=== PATIENT | female | born 1970 | race Caucasian/White ===

== ENCOUNTER 2023-10-08 19:50 | Emergency (ER) | payer OTHER, SELFPAY ==
[2023-10-08 19:51] VITALS: BP 152/89; PULSE 84; RESP 16; TEMP 36.6; O2SAT 99; BMI 30.8
--- NOTE | 2023-10-08 20:06 | US_ITS ---
STUDY: VENOUS DOPPLER ULTRASOUND - BILATERAL LOWER EXTREMITIES REASON FOR EXAM: Female, 53 years old. BILATERAL LOWER CALF REDNESS AND SWELLING X 4 MONTHS NO PAIN TECHNIQUE: Ultrasound evaluation of the deep vein system to include murillo-scale imaging and compression was performed. Murillo-scale imaging and Doppler sonographic evaluation, including duplex spectral analysis and qualitative color flow sonography, was performed. COMPARISON: None. FINDINGS: RIGHT LEG Common Femoral Vein: Normal compression, spontaneity and augmentation. Normal color Doppler. Common Femoral Vein/Greater Saphenous Junction: Normal compression, spontaneity and augmentation. Normal color Doppler. Deep Femoral Vein: Normal compression, spontaneity and augmentation. Normal color Doppler. Femoral Proximal: Normal compression, spontaneity and augmentation. Normal color Doppler. Femoral Middle: Normal compression, spontaneity and augmentation. Normal color Doppler. Femoral Distal: Normal compression, spontaneity and augmentation. Normal color Doppler. Popliteal Vein: Normal compression, spontaneity and augmentation. Normal color Doppler. Posterior Tibial Vein: Normal compression, spontaneity and augmentation. Normal color Doppler. Peroneal Vein: Normal compression, spontaneity and augmentation. Normal color Doppler. LEFT LEG Common Femoral Vein: Normal compression, spontaneity and augmentation. Normal color Doppler. Common Femoral Vein/Greater Saphenous Junction: Normal compression, spontaneity and augmentation. Normal color Doppler. Deep Femoral Vein: Normal compression, spontaneity and augmentation. Normal color Doppler. Femoral Proximal: Normal compression, spontaneity and augmentation. Normal color Doppler. Femoral Middle: Normal compression, spontaneity and augmentation. Normal color Doppler. Femoral Distal: Normal compression, spontaneity and augmentation. Normal color Doppler. Popliteal Vein: Normal compression, spontaneity and augmentation. Normal color Doppler. Posterior Tibial Vein: Normal compression, spontaneity and augmentation. Normal color Doppler. Peroneal Vein: Normal compression, spontaneity and augmentation. Normal color Doppler. US/Venous Duplex Imag/Haider Extrem IMPRESSION: Normal venous Doppler ultrasound of the bilateral lower extremities. Electronically Signed: Gil Blandon MD at 20:44 EST ,
--- NOTE | 2023-10-08 20:28 | EDS_ITS ---
HPI History of Present Illness Chief Complaint: Rash Informant: patient Narrative Narrative: Patient present secondary to rash and swelling to her legs. She states since June she has had erythema on her lower extremities, right greater than left. It affects the distal aspect of her lower legs only. She was seen at urgent care in August and placed on both oral and topical steroids. She states this seemed to calm it down but it never completely resolved. Symptoms have worsened recently and over the last 2 days she has noted swelling in her legs. She does not have a primary care physician but did do a Zoom visit with a [facility] doctor today who recommended she come to the emergency room. [facility] Medical History no medical history no medical history Home Medications prednisone 20 mg tablet 40 mg (2 x 20 mg) PO DAILY #8 tabs 10/08/23 [Rx Last Taken Unknown] Allergy/AdvReac Type Severity Reaction Status Date / Time No Known Allergies Allergy Verified 10/08/23 19:51 Social History Smoking Status: Never smoker ROS ROS ED Constitutional Constitutional ED: Denies chills or fever(s) Eyes Eyes: Denies discharge from eye(s) ENT ENT ED: Denies discharge from eye(s), rhinorrhea or sore throat Cardiovascular Cardiovascular: Denies chest pain or palpitations Respiratory/Chest Respiratory/Chest: Denies cough or dyspnea Gastrointestinal Gastrointestinal: Denies abdominal pain, nausea or vomiting Genitourinary Genitourinary ED: Denies dysuria Musculoskeletal Musculoskeletal: Reports other Details: Lower extremity edema ; Denies back pain or extremity pain Integumentary Reports rash; Denies Abrasions Neurologic Neurologic: Denies headache(s) or weakness Psychiatric Psychiatric: Denies anxiety or depression Allergic/Immunologic Allergic/Immunologic ED: Denies lip swelling or urticaria EXAM Physical Exam Const Vital Signs: 10/08/23 19:51 Temperature 98 F Temperature Source Temporal Pulse Rate 84 Respiratory Rate 16 Blood Pressure 152/89 H Blood Pressure Mean 110 Pulse Ox 99 Oxygen Delivery Method Room Air Positive well nourished and well developed General Appearance ED: well developed HEENT Reports moist mucous membranes Eyes EOMs intact bilaterally Chest Wall inspection of chest normal and palpation of chest normal Resp normal respiratory effort and clear to auscultation bilaterally Cardio regular rate and regular rhythm GI non-tender Palpation: soft Extremity Extremity Narrative: 2+ edema bilateral lower extremities. Mild erythema with some chronic skin changes noted over the distal aspect of the lower legs, right greater than left. No open wounds noted. No weeping lesions. Neuro oriented x3 and no sensory deficits noted Motor Exam: strength 5/5 throughout Psych mental status grossly normal MDM MDM MDM Narrative Medical decision making narrative: Venous ultrasound of the bilateral lower extremities obtained to evaluate for potential DVT given her new onset of edema. Radiography Diagnostic Testing: Clinical Impression(s) from Imaging Studies Venous Duplex 10/08/23 20:06 IMPRESSION: Normal venous Doppler ultrasound of the bilateral lower extremities. Electronically Signed: Gil Blandon MD at 20:44 EST , Treatment and Re-Evaluation :: Venous ultrasound reveals no evidence of DVT. I did discuss with the patient that I do recommend she get compression stockings as she is up on her feet a lot. I will write her another short course of steroids and she will use a steroid cream short he has at home. I did recommend follow-up with dermatology for potential punch biopsy. I do not believe the patient has infection and do not think she needs antibiotics. Discharge Plan Triage Chief Complaint: Rash ED Provider: Lilibeth Diane Dx/Rx/DC Orders Clinical Impression: Bilateral edema of lower extremity, Dermatitis Instructions: ED Peripheral Edema, Bilateral Prescriptions: New prednisone 20 mg tablet 40 mg PO DAILY Qty: 8 0RF Primary Care Provider: DURAN LYMAN Referrals: DURAN LYMAN [Other] Tracie Mitchell MD [Non-Staff] - Disposition Disposition: Home, Self Care
--- OUTSIDE RECORDS SUMMARY | 2023-10-08 21:05 | XMS RPT_ITS | CCD ---
Author Name Unknown Address [address] [place] [address] Organization [facility] Care Team Providers Care Sales Associate Name Role Phone Zachery Bray III Primary Care Provider ZACHERY BRAY III Primary Care Unavail able JOSEPH JAEGER Referring Unavailable ASA III, ZACHERY MERCER Primary Care Unavail able JOSEPH JAEGER Referring Unavailable ASA III, ZACHERY MERCER Primary Care Unavail able JOSEPH JAEGER Attending Unavailable ASA III, ZACHERY MERCER Primary Care Unavail able ASA III, ZACHERY [place] Primary Care Unavail able JOSEPH JAEGER Attending Unavailable ASA III, ZACHERY SYLVIE Primary Care Unavail able JOSEPH JAEGER Referring Unavailable Allergies Allergy Classification Reported Allergen(s) Allergy Type Date of Onset Reaction(s) Facility (1 source) OTHER; Translations: [OTHER] Propensity to adverse reactions (disorder) 4 [facility] Repository Medications Completed/Discontinued Medications Medication Drug Class(es) Dates Sig (Normalized) Sig (Original) drospirenone / Ethinyl Estradiol / levomefolate (6 sources) Progestin, Estrogen Start: 05-01-2023 take 1 tablet by mouth once daily drospirenone-e.es tradiol-lm.FA (BEYAZ) 3-0.02-0.451 mg (24) (4) tab Take 1 tablet by mouth once daily. 84 tablet 3 05/01/2023 Active Problems Active Problems Problem Classification Problem Date Documented Da te Episodic/Chronic Genitourinary symptoms and ill-defined conditions (1 source) Travis hematuria; Translations: [Gross hematuria] Episodic Menstrual disorders (4 sources) Irregular periods; Translations: [Irregular menstruation, unspecified] Onset: 01-10-2023 Chronic Past or Other Problems Problem Classification Problem Date Documented Da te Episodic/Chronic Malaise and fatigue (4 sources) Malaise and fatigue; Translations: [Other malaise] Onset: 01-10-2023 Episodic Other screening for suspected conditions (not mental disorders or infectious disease) (6 sources) Patient encounter status; Translations: [Encounter for screening mammogram for malignant neoplasm of breast] Onset: 01-18-2023 Episodic Results Test Name Value Interpretation Reference Range Facil ity Vital Signs Date Time Vital Sign Value Performing Clinician Faci lity 02-18-2023 09:50-0400 Body height 160 cm Joseph Jaeger MD Work Phone: [facility] 02-18-2023 09:50-0400 Body weight 74.84 kg Joseph Jaeger MD Work Phone: [facility] 02-18-2023 09:50-0400 Diastolic blood pressure 84 mm[Hg] Joseph Jaeger MD Work Phone: [facility] 02-18-2023 09:50-0400 Systolic blood pressure 152 mm[Hg] Joesph Jaeger MD Work Phone: [facility] 01-08-2023 09:18-0400 Body weight 77.47 kg Joseph Jaeger MD Work Phone: [facility] 01-08-2023 09:18-0400 Diastolic blood pressure 72 mm[Hg] Joseph Jaeger MD Work Phone: [facility] 01-08-2023 09:18-0400 Systolic blood pressure 120 mm[Hg] Joseph Jaeger MD Work Phone: [facility] 05-18-2022 10:56-0400 Body weight 73.94 kg Joseph Jaeger MD Work Phone: [facility] 05-18-2022 10:56-0400 Diastolic blood pressure 80 mm[Hg] Joseph Jaeger MD Work Phone: [facility] 05-18-2022 10:56-0400 Systolic blood pressure 144 mm[Hg] Joseph Jaeger MD Work Phone: [facility] Encounters Encounter Date Encounter Type Care Provider Facility Start: 09-06-2023 End: 09-06-2023 ambulatory ZACHERY SYLVIE ASA [facility] Facility:[facility] Start: 06-06-2023 ambulatory Joseph celaya MD Work Phone: OB/Gynecology Procedures Date Procedure Procedure Detail Performing Clinician Start: 01-18-2023 Us pelvic nonobstetr ic image dcmtn limited/f/u Joseph Jaeger MD Work Phone: Start: 01-18-2023 End: 01-18-2023 Mammography Joseph Jaeger MD Work Phone: Start: 05-18-2022 Urnls dip stick/tabl et rgnt auto w/o microscopy Joseph Jaeger MD Work Phone: Start: 06-23-2020 Mammography Joseph gallardo MD Work Phone: Plan of Treatment Date Care Activity Detail Author Start: 02-19-2028 HPV Testing HPV Testing [facility] Start: 02-19-2028 Pap Testing Pap Testing [facility] Start: 01-29-2024 HPV TESTING HPV TESTING [facility] Start: 01-29-2024 PAP TESTING PAP TESTING [facility] Start: 01-19-2024 Mammography [facility] Start: 04-19-2023 Covid-19 Vaccine ( season) Covid-19 Vaccine ( season) [facility] Start: 04-19-2023 Influenza vaccination [facility] Start: 01-08-2023 End: 03-10-2023 CBC panel - Blood by Automated count CBC Lab Routine Malaise and fatigue Irregular menstrual cycle Expected: 01/08/2023, Expires: 03/10/[address] [facility] Work Phone: Immunizations Immunization Date Immunization Notes Care Provider Fa cility 07-20-2022 Seasonal, quadrivale nt, recombinant, injectable influenza vaccine, preservative free Joseph Jaeger MD Work Phone: [facility] Work Phone: 07-20-2022 zoster vaccine recombinant Joseph Jaeger MD Work Phone: [facility] Work Phone: 07-20-2022 influenza virus vacc ine, unspecified formulation Joseph Jaeger MD Work Phone: [facility] 08-03-2021 COVID-19 original vaccine, age 12+ yr, monovalent (PFIZER-BIONTECH - PURPLE TOP) Joseph Jaeger MD Work Phone: [facility] Work Phone: 06-02-2021 influenza, injectabl e, quadrivalent, contains preservative Joseph Jaeger MD Work Phone: [facility] 11-04-2020 COVID-19 original vaccine, age 12+ yr, monovalent (PFIZER-BIONTECH - PURPLE TOP) Joseph Jaeger MD Work Phone: [facility] Work Phone: 10-14-2020 COVID-19 original vaccine, age 12+ yr, monovalent (PFIZER-BIONTECH - PURPLE TOP) Joseph Jaeger MD Work Phone: [facility] Work Phone: 05-03-2020 influenza, injectabl e, quadrivalent, contains preservative Joseph Jaeger MD Work Phone: [facility] Work Phone: 05-30-2019 influenza, injectabl e, quadrivalent, contains preservative Joseph Jaeger MD Work Phone: [facility] 05-29-2016 influenza, seasonal, injectable Joseph Jaeger MD Work Phone: [facility] Work Phone: 07-31-2013 influenza virus vacc ine, unspecified formulation Joseph Jaeger MD Work Phone: [facility] Work Phone: 01-23-2013 hepatitis A and hepatitis B vaccine Joseph Jaeger MD Work Phone: [facility] Work Phone: 07-16-2012 hepatitis A and hepatitis B vaccine Joseph Jaeger MD Work Phone: [facility] Work Phone: 06-10-2012 hepatitis A and hepatitis B vaccine Joseph Jaeger MD Work Phone: [facility] Work Phone: 06-10-2012 influenza, seasonal, injectable, preservative free Joseph Jaeger MD Work Phone: [facility] Work Phone: 06-10-2012 measles, mumps and rubella virus vaccine Joseph Jaeger MD Work Phone: [facility] Work Phone: 06-10-2012 poliovirus vaccine, inactivated Joseph Jaeger MD Work Phone: [facility] Work Phone: 06-10-2012 tetanus toxoid, redu mirtha diphtheria toxoid, and acellular pertussis vaccine, adsorbed Joseph Jaeger MD Work Phone: [facility] Work Phone: 06-10-2012 typhoid capsular polysaccharide vaccine Joseph Jaeger MD Work Phone: [facility] Work Phone: Payers Date Payer Category Payer Unknown [id number] 2020 Unknown [id number] Social History Date Type Detail Facility Start: 01-28-2019 End: 01-08-2023 Tobacco smoking status TXIS Never smoked tobacco [facility] Start: 01-28-2019 End: 01-08-2023 Tobacco use and exposure Smokeless tobacco non-user [facility] Start: 05-18-2022 End: 01-08-2023 Alcohol intake Current non-drinker of alcohol (finding) [facility] Start: 1970 Sex Assigned At Female C [facility] Start: 05-08-2022 End: 05-18-2022 Exposure to SARS-CoV-2 (event) Not sure [facility] Start: 01-08-2023 End: 02-18-2023 History of Social function [facility] Start: 01-08-2023 End: 02-18-2023 Tobacco use panel [facility] National Score (1-10 0), lower number is lower risk 35 [facility] Start: 01-21-2019 Gender identity Identifies as female gender (finding) [facility] Start: 01-21-2019 Sexual orientation Heterosexual (mayte kaiser) [facility] Clinical Notes 12-29-2003 to 09-06-2023 Patient InstructionsResarah Jaeger MD - 02/18/2023 9:40 AM EDTTelephone Encounter - Lilibeth Hinojosa RN - 01/22/2023 4:55 PM EDTTelephone Encounter - Joseph Jaeger MD - 01/22/2023 4:40 PM EDT Note Date & Type Note Facility 09-06-2023 Note HNO ID: [id number] Author: SELVIN MCCRACKEN APRN.CLIENT SUPPORT COORDINATOR Service: ? Author Type: Nurse Practitioner Type: Progress Notes Filed: 09/06/2023 15:46 Note Text: Subjective HPI HPI Best Goldstein is a 53 year old female who presents today for CC of itchy rash on ankles. This started 4 weeks ago/worsening. Has tried otc medication without relief. Symptoms are worsened by nothing known. Reports becoming allergic to poison siobhan when she was 40 years old. .Patient presents with: Rash: Bilateral ankles x4 weeks PAST MEDICAL HISTORY Diagnosis Date Abdominal pain, unspecified site Hemorrhage of gastrointestinal tract, unspecified Hemorrhage of rectum and anus Internal hemorrhoids without mention of complication Lyme disease 1994 Lyme disease 2003 IV ceftriaxone for Lyme neuroborreliosis Mitral valve disorders(424.0) mitral valve prolapse Nausea alone PAST SURGICAL HISTORY Procedure Laterality Date SIGMOIDOSCOPY FLX DX W/COLLJ SPEC BR/WA IF PFRMD 01/14/08 TONSILLECTOMY PRIMARY/SECONDARY ALLERGIES Patient has no known allergies. MEDICATIONS drospirenone-e.estradiol-lm.FA (BEYAZ) 3-0.02-0.451 mg (24) (4) tab Take 1 tablet by mouth once daily. predniSONE (DELTASONE) 10 mg tablet Take 4 tabs daily for 3 days, then 2 tabs daily for 3 days, then 1 tab daily for 3 days with food. triamcinolone acetonide (KENALOG) 0.1 % cream Apply 1 application to affected area three times a day for 10 days. Apply sparingly to area for rash/itching. FAMILY HISTORY Problem Relation Age of Onset Heart Attack Father 60 Prostate Cancer Father 55 other (bladder cancer) Father 75 Cancer Maternal Grandmother bone Diabetes Paternal Grandmother Diabetes Paternal Grandfather Social History Tobacco Use Smoking status: Never Smokeless tobacco: Never Vaping Use Vaping Use: Never used Substance Use Topics Alcohol use: No Comment: 2-3 glasses wine cooler/year Drug use: No Review of Systems Constitutional: Negative for fever. Skin: Positive for itching and rash. Objective Blood pressure 149/83, pulse 78, temperature 36.9 ?C (98.4 ?F), resp. rate 18, weight 77.6 kg (171 lb), last menstrual period 02/04/2023, SpO2 99%. Bp recheck manual by provider 120/78. Physical Exam Constitutional: General: She is not in acute distress. Appearance: She is not toxic-appearing or diaphoretic. HENT: Head: Normocephalic and atraumatic. Pulmonary: Effort: Pulmonary effort is normal. No accessory muscle usage or respiratory distress. Skin: Neurological: Mental Status: She is alert and oriented to person, place, and time. ASSESSMENT/PLAN: 1. Rash - ICD9: 782.1, ICD10: R21 Suspect contact dermatitis from unknown irritant -use medication as prescribed -follow up if symptoms persist, worsen, change - PREDNISONE 10 MG TABLET - TRIAMCINOLONE ACETONIDE 0.1 % TOPICAL CREAM Selvin Mccracken APRN.[facility] 02-18-2023 Note HNO ID: [id number] Author: Joseph Jaeger MD Service: ? Author Type: Physician Type: Progress Notes Filed: 02/18/2023 11:02 AM Note Text: Best is a 52 year old who presents for an annual gynecologic exam without complaints. Does think the control is helping her feel better overall. Less fatigued before recent stressor of her father being in a car accident and now in ICU on a ventilator, seems to be failing. Postmenopausal: no HRT use: n/a. 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 LMP: 02/04/2023 (Exact Date), Having periods Age at Menarche: Age at First : Age at Menopause: Pusher Operator History Comments: Sexual Activity: Yes; Male Contraception: No contraception data on record PAST MEDICAL HISTORY Diagnosis Date Abdominal pain, unspecified site Hemorrhage of gastrointestinal tract, unspecified Hemorrhage of rectum and anus Internal hemorrhoids without mention of complication Lyme disease 1994 Lyme disease 2004 IV ceftriaxone for Lyme neuroborreliosis Mitral valve disorders(424.0) mitral valve prolapse Nausea alone PAST SURGICAL HISTORY Procedure Laterality Date SIGMOIDOSCOPY FLX DX W/COLLJ SPEC BR/WA IF PFRMD 01/14/08 TONSILLECTOMY PRIMARY/SECONDARY FAMILY HISTORY Problem Relation Age of Onset Heart Attack Father 60 Prostate Cancer Father 55 other (bladder cancer) Father 75 Cancer Maternal Grandmother bone Diabetes Paternal Grandmother Diabetes Paternal Grandfather SOCIAL HISTORY Social History Tobacco Use Smoking status: Never Smokeless tobacco: Never Vaping Use Vaping Use: Never used Substance Use Topics Alcohol use: No Comment: 2-3 glasses wine cooler/year Drug use: No REVIEW OF SYSTEMS Abdomen: No abdominal pain, nausea, vomiting, diarrhea, or constipation. No bloating, early satiety, indigestion, or increased flatulence. Bladder: No dysuria, gross hematuria, urinary frequency, urinary urgency, or incontinence Breast: No breast lumps, nipple d/c, overlying skin changes, redness or skin retraction Allergies and current medication updated:Yes EXAM: BP 152/84 Ht 5' 3 (1.60m) Wt 165 lb (74.8kg) LMP 02/04/2023 BMI 29.24 kg/(m2). GENERAL: pleasant, female in no apparent distress HEENT: Normocephalic, atraumatic, mucus membranes moist, and no lesions NECK: Supple, full range of motion, no adenopathy, and thyroid normal DERMATOLOGY: Normal, without lesions, non-icteric, and non-hirsute BREAST: soft, non-tender, symmetric, no dominant mass, normal nipple-areolar complex, no lymphadenopathy, and no nipple discharge CHEST: Normal inspiratory effort ABDOMEN: soft, non-tender, and no masses PELVIC: external genitalia normal, normal Bartholin's glands, urethra, Fernley's glands, no vulvar lesions, no cervical lesions, good vaginal support, physiologic discharge present, normal appearing perineal body and perianal region BIMANUAL: uterus normal size, shape and consistency, no adnexal masses, and non-tender RECTOVAGINAL: deferred. NEURO: alert and oriented x3,exam grossly non-focal EXTREMITIES: normal ASSESSMENT/PLAN: 1) Health maintenance: Pap done with HPV. Mammogram ordered 2) Follow up one year or sooner as needed Joseph Jaeger MD Best is a 52 year old Female who presents today for an endometrial biopsy for abnormal uterine bleeding. test: negative UNIVERSAL PROTOCOL / SAFETY CHECKLIST Procedure to be Performed: EMB Sign In: A Moment of CARE was completed. Personnel directly involved with the procedure wore the appropriate PPE (Personal Protective Equipment). Patient/Surrogate Stated/Verified: PATIENT VERIFIED(optional for EMERGENT procedures): Patient name, Date of , Relevant allergies, and The intended procedure Time Out Communication: Intended patient and procedure match the source documents. Consent documented and matches the intended procedure. No implant(s) inserted. Sign Out: SIGN OUT (optional for EMERGENT procedures): All specimen containers correctly labeled. All instruments, equipment, possible retained foreign bodies accounted for. Post-procedure follow-up management communicated and Plan of Care Visit completed when applicable. Joseph Jaeger M.D. PROCEDURE: EXTERNAL GENITALIA: Normal in appearance without lesions VAGINA: Normal in appearance without lesions BIOPSY: Speculum placed into the vagina with excellent visualization of the cervix. Cervix cleaned with betadine. Uterus sounded to 8 cm. Pipelle inserted into the uterus without difficulty and endometrial biopsy obtained. Specimen labeled and sent to pathology. 2 vigorous passes made Procedure Summary: Patient tolerated procedure well. ASSESSMENT: abnormal uterine bleeding (more content not included)... [facility] 02-18-2023 Instructions Swapna Pan La - 02/18/2023 9:53 AM EDT YOUR RECOVERY After your biopsy you may have: Vaginal bleeding (less than a normal menstrual period) Mild cramping Do NOT put anything in the vagina for 1 week after your endometrial biopsy. This includes: tampons douches and refraining from having sexual intercourse If you have any discomfort, you may take an over the counter pain medication (motrin, advil, ibuprofen, tylenol, etc). If this does not relieve your discomfort, contact the office. It is okay to wear a sanitary pad until the discharge and spotting stops. RISKS Although problems seldom occur with endometrial biopsies, there can be some complications. You may feel faint during and shortly after the procedure as well as have some bleeding after the procedure. There is also a risk of infection after the procedure. These complications are rare and can be easily treated. You should contact you doctor is you have any of the following: Heavy bleeding (more than your normal period) Bleeding with clots Severe abdominal pain Fever (more than 100.4F) Foul smelling vaginal discharge RESULTS We will have the results of your biopsy in 1-2 weeks. If you do not hear the results of your biopsy after 2 weeks, please contact the office for the results. If you have any additional questions or concerns please do not hesitate to contact the office. documented in this encounter [facility] 02-18-2023 History of Presen t illness Narrative Best is a 52 year old who presents for an annual gynecologic exam without complaints. Does think the control is helping her feel better overall. Less fatigued before recent stressor of her father being in a car accident and now in ICU on a ventilator, seems to be failing. Postmenopausal: no HRT use: n/a. 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 LMP: 02/04/2023 (Exact Date), Having periods Age at Menarche: Age at First : Age at Menopause: Pusher Operator History Comments: Sexual Activity: Yes; Male Contraception: No contraception data on record PAST MEDICAL HISTORY Diagnosis Date Abdominal pain, unspecified site Hemorrhage of gastrointestinal tract, unspecified Hemorrhage of rectum and anus Internal hemorrhoids without mention of complication Lyme disease 1994 Lyme disease 2004 IV ceftriaxone for Lyme neuroborreliosis Mitral valve disorders(424.0) mitral valve prolapse Nausea alone PAST SURGICAL HISTORY Procedure Laterality Date SIGMOIDOSCOPY FLX DX W/COLLJ SPEC BR/WA IF PFRMD 01/14/08 TONSILLECTOMY PRIMARY/SECONDARY <AGE 12 FAMILY HISTORY Problem Relation Age of Onset Heart Attack Father 60 Prostate Cancer Father 55 other (bladder cancer) Father 75 Cancer Maternal Grandmother bone Diabetes Paternal Grandmother Diabetes Paternal Grandfather SOCIAL HISTORY Social History Tobacco Use Smoking status: Never Smokeless tobacco: Never Vaping Use Vaping Use: Never used Substance Use Topics Alcohol use: No Comment: 2-3 glasses wine cooler/year Drug use: No REVIEW OF SYSTEMS Abdomen: No abdominal pain, nausea, vomiting, diarrhea, or constipation. No bloating, early satiety, indigestion, or increased flatulence. Bladder: No dysuria, gross hematuria, urinary frequency, urinary urgency, or incontinence Breast: No breast lumps, nipple d/c, overlying skin changes, redness or skin retraction Allergies and current medication updated:Yes EXAM: BP 152/84 Ht 5' 3 (1.60m) Wt 165 lb (74.8kg) LMP 02/04/2023 BMI 29.24 kg/(m^2). GENERAL: pleasant, female in no apparent distress HEENT: Normocephalic, atraumatic, mucus membranes moist, and no lesions NECK: Supple, full range of motion, no adenopathy, and thyroid normal DERMATOLOGY: Normal, without lesions, non-icteric, and non-hirsute BREAST: soft, non-tender, symmetric, no dominant mass, normal nipple-areolar complex, no lymphadenopathy, and no nipple discharge CHEST: Normal inspiratory effort ABDOMEN: soft, non-tender, and no masses PELVIC: external genitalia normal, normal Bartholin's glands, urethra, Fernley's glands, no vulvar lesions, no cervical lesions, good vaginal support, physiologic discharge present, normal appearing perineal body and perianal region BIMANUAL: uterus normal size, shape and consistency, no adnexal masses, and non-tender RECTOVAGINAL: deferred. NEURO: alert and oriented x3,exam grossly non-focal EXTREMITIES: normal ASSESSMENT/PLAN: 1) Health maintenance: Pap done with HPV. Mammogram ordered 2) Follow up one year or sooner as needed Joseph Jaeger MD Best is a 52 year old Female who presents today for an endometrial biopsy for abnormal uterine bleeding. test: negative UNIVERSAL PROTOCOL / SAFETY CHECKLIST Procedure to be Performed: EMB Sign In: A Moment of CARE was completed. Personnel directly involved with the procedure wore the appropriate PPE (Personal Protective Equipment). Patient/Surrogate Stated/Verified: PATIENT VERIFIED(optional for EMERGENT procedures): Patient name, Date of , Relevant allergies, and The intended procedure Time Out Communication: Intended patient and procedure match the source documents. Consent documented and matches the intended procedure. No implant(s) inserted. Sign Out: SIGN OUT (optional for EMERGENT procedures): All specimen containers correctly labeled. All instruments, equipment, possible retained foreign bodies accounted for. Post-procedure follow-up management communicated and Plan of Care Visit completed when applicable. Joseph Jaeger M.D. PROCEDURE: EXTERNAL GENITALIA: Normal in appearance without lesions VAGINA: Normal in appearance without lesions BIOPSY: Speculum placed into the vagina with excellent visualization of the cervix. Cervix cleaned with betadine. Uterus sounded to 8 cm. Pipelle inserted into the uterus without difficulty and endometrial biopsy obtained. Specimen labeled and sent to pathology. 2 vigorous passes made Procedure Summary: Patient tolerated procedure well. ASSESSMENT: abnormal uterine bleeding PLAN: Specimens labeled and sent to Pathology. Will notify patient of results in 1-2 weeks. Post-procedure instructions reviewed and written material given to the patient. Joseph Jaeger MD documented in this encounter [facility] 01-22-2023 Miscellaneous Notes Called and spoke with patient. Now scheduled for February 18 for both annual and EMB. Cancelled the other appointments. Lilibeth Hinojosa RN If she can. Ok to use a new patient slot if needed, take all 30 min. Otherwise give me 20 min that day as there are not a lot of other openings. 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 Did you want that moved to a different day? Just make sure to schedule 20 min for her and we can do annual and EMB on February 25. Joseph Jaeger MD EMB scheduled for 02/25 and annual for 04/25. Carmen Álvarez RN documented in this encounter [facility] 01-18-2023 Note HNO ID: [id number] Author: Naye Yi RDMS Service: ? Author Type: Hogshead Press Operator Type: Progress Notes Filed: 01/18/2023 3:02 PM Note Text: Radiology Service Progress Note PATIENT NAME: Best Goldstein DATE OF SERVICE: January 18, 2023 TIME: 3:02 PM PATIENT IDENTITY VERIFICATION COMPLETED USING TWO (2) IDENTIFIERS: Name and Date of confirmed by patient verbally. FALL SCREENING: Has the patient had 2 falls in the last year or 1 fall with injury or currently using an Ambulatory Assistive Device (Walker, Cane, Wheelchair, Crutches, etc.)? No PATIENT GENDER DATA: Female. status: : No status: NO. PATIENT RELEVANT IMPLANT DATA REVIEWED: Not Applicable RADIOLOGY DEPARTMENT: Ultrasound PERIPHERAL IV DATA: Not applicable SIGNED BY: Naye Yi RDMS January 18, 2023 3:02 PM [facility] 01-18-2023 Note HNO ID: [id number] Author: RT Maria Guadalupe(R) Service: ? Author Type: Technologist Type: Progress Notes Filed: 01/18/2023 1:58 PM Note Text: Radiology Service Progress Note PATIENT NAME: Best Goldstein DATE OF SERVICE: January 18, 2023 TIME: 1:58 PM PATIENT IDENTITY VERIFICATION COMPLETED USING TWO (2) IDENTIFIERS: Name and Date of confirmed by patient verbally. FALL SCREENING: Has the patient had 2 falls in the last year or 1 fall with injury or currently using an Ambulatory Assistive Device (Walker, Cane, Wheelchair, Crutches, etc.)? No PATIENT GENDER DATA: Female. status: : No status: NO. PATIENT RELEVANT IMPLANT DATA REVIEWED: Not Applicable RADIOLOGY DEPARTMENT: Mammography PERIPHERAL IV DATA: Not applicable SIGNED BY: RT Maria Guadalupe(R) January 18, 2023 1:58 PM [facility] 01-18-2023 History of Presen t illness Narrative Radiology Service Progress Note PATIENT NAME: Best Goldstein DATE OF SERVICE: January 18, 2023 TIME: 3:02 PM PATIENT IDENTITY VERIFICATION COMPLETED USING TWO (2) IDENTIFIERS: Name and Date of confirmed by patient verbally. FALL SCREENING: Has the patient had 2 falls in the last year or 1 fall with injury or currently using an Ambulatory Assistive Device (Walker, Cane, Wheelchair, Crutches, etc.)? No PATIENT GENDER DATA: Female. status: : No status: NO. PATIENT RELEVANT IMPLANT DATA REVIEWED: Not Applicable RADIOLOGY DEPARTMENT: Ultrasound PERIPHERAL IV DATA: Not applicable SIGNED BY: Naye Yi RDMS January 18, 2023 3:02 PM documented in this encounter [facility] 01-18-2023 History of Presen t illness Narrative Radiology Service Progress Note PATIENT NAME: Best Goldstein DATE OF SERVICE: January 18, 2023 TIME: 1:58 PM PATIENT IDENTITY VERIFICATION COMPLETED USING TWO (2) IDENTIFIERS: Name and Date of confirmed by patient verbally. FALL SCREENING: Has the patient had 2 falls in the last year or 1 fall with injury or currently using an Ambulatory Assistive Device (Walker, Cane, Wheelchair, Crutches, etc.)? No PATIENT GENDER DATA: Female. status: : No status: NO. PATIENT RELEVANT IMPLANT DATA REVIEWED: Not Applicable RADIOLOGY DEPARTMENT: Mammography PERIPHERAL IV DATA: Not applicable SIGNED BY: RT Maria Guadalupe(R) January 18, 2023 1:58 PM documented in this encounter [facility] 01-08-2023 Note HNO ID: [id number] Author: Joseph Jaeger MD Service: ? Author Type: Physician Type: Progress Notes Filed: 01/08/2023 10:26 AM Note Text: Best Goldstein is a 52 year old female who presents for problem visit for forgetfullness, moodiness. Pain on her sides. Menses closer together. 3 in past 9 weeks. Hot flashes. Doesn't sleep well. Trouble falling back to sleep. Menses one was 4-5 days and light, next one 2-3 weeks apart and may be heavy. Feels like she is about to start now. Nausea in am. 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 Wants to keep up w/ everything. Some trouble losing wt Was on contraception a long time ago. Didn't take it long. No adverse reactions just remembers not liking it . 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 Comments: Sexual Activity: Yes; Male Contraception: No contraception data on record PAST MEDICAL HISTORY Diagnosis Date Abdominal pain, unspecified site Hemorrhage of gastrointestinal tract, unspecified Hemorrhage of rectum and anus Internal hemorrhoids without mention of complication Lyme disease 1994 Lyme disease 2003 IV ceftriaxone for Lyme neuroborreliosis Mitral valve disorders(424.0) mitral valve prolapse Nausea alone PAST SURGICAL HISTORY Procedure Laterality Date SIGMOIDOSCOPY FLX DX W/COLLJ SPEC BR/WA IF PFRMD 01/14/08 TONSILLECTOMY PRIMARY/SECONDARY FAMILY HISTORY Problem Relation Age of Onset Heart Attack Father 60 Prostate Cancer Father 55 other (bladder cancer) Father 75 Cancer Maternal Grandmother bone Diabetes Paternal Grandmother Diabetes Paternal Grandfather Social History Tobacco Use Smoking status: Never Smokeless tobacco: Never Vaping Use Vaping Use: Never used Substance Use Topics Alcohol use: No Comment: 2-3 glasses wine cooler/year Drug use: No No current outpatient medications on file. No current facility-administered medications for this visit. Allergies As of Date: 01/08/2023 Allergen Noted Reaction NONE [OTHER] 03/15/2004 Fully Assessed 01/08/2023 REVIEW OF SYSTEMS Abdomen: No bloating, early satiety, indigestion, or increased flatulence. No abdominal pain, nausea, vomiting, diarrhea, or constipation. Bladder: No dysuria, gross hematuria, urinary frequency, urinary urgency, or incontinence. Breast: No breast lumps, nipple d/c, overlying skin changes, redness or skin retraction. Allergies and current medication updated:Yes EXAM: BP 120/72 Wt 170 lb 12.8 oz (77.5kg) LMP 12/25/2022 GENERAL: pleasant, female in no apparent distress ASSESSMENT AND PLAN: irreg menses, fatigue, perimenopause.Trouble sleeping. D/w her many of these symptoms are multifactoral. For AUB recommend US and EMB. Schedule. TSH/CBC and iron studies ordered. D/w her sleep hygeine, otc meds for insomnia prn, meditation. Has been exercising regularly R/B/A to trial combined hormonal contraceptives reviewed, questions answered and she desires to proceed f/u for pap/annual and discuss labs and see how she is doing on this. Medical Decision Making: Problems: Low: 2+ self-limited or minor problems Data: Unique test(s) ordered: 3+ Risk: Moderate: Drug management Medical Decision Making Level: 4 - Moderate Joseph Jaeger MD [facility] 01-08-2023 History of Presen t illness Narrative Best Goldstein is a 52 year old female who presents for problem visit for forgetfullness, moodiness. Pain on her sides. Menses closer together. 3 in past 9 weeks. Hot flashes. Doesn't sleep well. Trouble falling back to sleep. Menses one was 4-5 days and light, next one 2-3 weeks apart and may be heavy. Feels like she is about to start now. Nausea in am. 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 Wants to keep up w/ everything. Some trouble losing wt Was on contraception a long time ago. Didn't take it long. No adverse reactions just remembers not liking it . 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 Comments: Sexual Activity: Yes; Male Contraception: No contraception data on record PAST MEDICAL HISTORY Diagnosis Date Abdominal pain, unspecified site Hemorrhage of gastrointestinal tract, unspecified Hemorrhage of rectum and anus Internal hemorrhoids without mention of complication Lyme disease 1994 Lyme disease 2003 IV ceftriaxone for Lyme neuroborreliosis Mitral valve disorders(424.0) mitral valve prolapse Nausea alone PAST SURGICAL HISTORY Procedure Laterality Date SIGMOIDOSCOPY FLX DX W/COLLJ SPEC BR/WA IF PFRMD 01/14/08 TONSILLECTOMY PRIMARY/SECONDARY <AGE 12 FAMILY HISTORY Problem Relation Age of Onset Heart Attack Father 60 Prostate Cancer Father 55 other (bladder cancer) Father 75 Cancer Maternal Grandmother bone Diabetes Paternal Grandmother Diabetes Paternal Grandfather Social History Tobacco Use Smoking status: Never Smokeless tobacco: Never Vaping Use Vaping Use: Never used Substance Use Topics Alcohol use: No Comment: 2-3 glasses wine cooler/year Drug use: No No current outpatient medications on file. No current facility-administered medications for this visit. Allergies As of Date: 01/08/2023 Allergen Noted Reaction NONE [OTHER] 03/15/2004 Fully Assessed 01/08/2023 REVIEW OF SYSTEMS Abdomen: No bloating, early satiety, indigestion, or increased flatulence. No abdominal pain, nausea, vomiting, diarrhea, or constipation. Bladder: No dysuria, gross hematuria, urinary frequency, urinary urgency, or incontinence. Breast: No breast lumps, nipple d/c, overlying skin changes, redness or skin retraction. Allergies and current medication updated:Yes EXAM: BP 120/72 Wt 170 lb 12.8 oz (77.5kg) LMP 12/25/2022 GENERAL: pleasant, female in no apparent distress ASSESSMENT AND PLAN: irreg menses, fatigue, perimenopause.Trouble sleeping. D/w her many of these symptoms are multifactoral. For AUB recommend US and EMB. Schedule. TSH/CBC and iron studies ordered. D/w her sleep hygeine, otc meds for insomnia prn, meditation. Has been exercising regularly R/B/A to trial combined hormonal contraceptives reviewed, questions answered and she desires to proceed f/u for pap/annual and discuss labs and see how she is doing on this. Medical Decision Making: Problems: Low: 2+ self-limited or minor problems Data: Unique test(s) ordered: 3+ Risk: Moderate: Drug management Medical Decision Making Level: 4 - Moderate Joseph Jaeger MD documented in this encounter [facility] 05-18-2022 History of Presen t illness Narrative Best Goldstein is a 51 year old female who presents for problem visit for f/u blood in urine. 2 weeks ago had spotting in underwear. Thought started menses but no blood on tampon. Next day had some severe pain in pelvis and right side. Little bit of blood in underwear more than in toilet. Pain was improving. This week started period but no urinary symptoms. No fever. DId have some frequency and feeling of incomplete void. Never had before. Her father was recently dx w/ bladder ca. 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 History Comments: Sexual Activity: Yes; Male Contraception: No contraception data on record PAST MEDICAL HISTORY Diagnosis Date Abdominal pain, unspecified site Hemorrhage of gastrointestinal tract, unspecified Hemorrhage of rectum and anus Internal hemorrhoids without mention of complication Lyme disease 1994 Lyme disease 2004 IV ceftriaxone for Lyme neuroborreliosis Mitral valve disorders(424.0) mitral valve prolapse Nausea alone PAST SURGICAL HISTORY Procedure Laterality Date REMOVAL OF TONSILS,<12 Y/O SIGMOIDOSCOPY FLEX DIAG 01/14/08 FAMILY HISTORY Problem Relation Age of Onset Heart Attack Father 60 Cancer Maternal Grandmother bone Diabetes Paternal Grandmother Diabetes Paternal Grandfather Social History Tobacco Use Smoking status: Never Smokeless tobacco: Never Vaping Use Vaping Use: Never used Substance Use Topics Alcohol use: No Comment: 2-3 glasses wine cooler/year Drug use: No No current outpatient medications on file. No current facility-administered medications for this visit. Allergies As of Date: 05/18/2022 Allergen Noted Reaction NONE [OTHER] 03/15/2004 Fully Assessed 05/18/2022 Allergies and current medication updated:Yes EXAM: LMP 06/06/2020 GENERAL: pleasant, female in no apparent distress ASSESSMENT AND PLAN: hematuria-resolved. Likely passed a kidney stone. Discussed with patient if it recurs please let us know. She is on her menses today and urinalysis is negative except for small amount of blood which would be consistent with menstrual blood flow. Patient is reassured by this. Will call if further questions or concerns. Medical Decision Making: Medical Decision Making Level: 1 - N/A Joseph Jaeger MD documented in this encounter [facility] documented as of this encounter (statuses as of 05/18/2022) [facility] History of Past illness Narrative* Problem Noted Date Resolved Date Lyme disease 12/29/2003 01/28/2019 Cervicalgia 10/18/2003 01/28/2019 Headache(784.0) 10/18/2003 01/28/2019 Hemorrhage of rectum and anus Abdominal pain, unspecified site 01/28/2019 Diarrhea 01/28/2019 Unspecified constipation 019 documented as of this encounter (statuses as of 01/08/2023) [facility] History of Past illness Narrative* Problem Noted Date Resolved Date Lyme disease 12/29/2003 01/28/2019 Cervicalgia 10/18/2003 01/28/2019 Headache(784.0) 10/18/2003 01/28/2019 Hemorrhage of rectum and anus Abdominal pain, unspecified site 01/28/2019 Diarrhea 01/28/2019 Unspecified constipation 019 documented as of this encounter (statuses as of 01/23/2023) [facility] History of Past illness Narrative* Problem Noted Date Resolved Date Lyme disease 12/29/2003 01/28/2019 Cervicalgia 10/18/2003 01/28/2019 Headache(784.0) 10/18/2003 01/28/2019 Hemorrhage of rectum and anus Abdominal pain, unspecified site 01/28/2019 Diarrhea 01/28/2019 Unspecified constipation 019 documented as of this encounter (statuses as of 02/18/2023) [facility] History of Past illness Narrative* Problem Noted Date Diagnosed Date Resolved Date Lyme disease 12/29/2003 01/28/2019 Cervicalgia 10/18/2003 01/28/2019 Headache(784.0) 10/18/2003 01/28/2019 Hemorrhage of rectum and anus 01/28/2019 Abdominal pain, unspecified site 01/28/2019 Diarrhea 01/28/2019 Unspecified constipation 07/2019 documented as of this encounter (statuses as of 06/07/2023) [facility] History of Past illness Narrative* Problem Noted Date Diagnosed Date Resolved Date Lyme disease 12/29/2003 01/28/2019 Cervicalgia 10/18/2003 01/28/2019 Headache(784.0) 10/18/2003 01/28/2019 Hemorrhage of rectum and anus 01/28/2019 Abdominal pain, unspecified site 01/28/2019 Diarrhea 01/28/2019 Unspecified constipation 07/2019 documented as of this encounter (statuses as of 06/23/2023) [facility] History of Past illness Narrative* Problem Noted Date Diagnosed Date Resolved Date Lyme disease 12/29/2003 01/28/2019 Cervicalgia 10/18/2003 01/28/2019 Headache(784.0) 10/18/2003 01/28/2019 Hemorrhage of rectum and anus 01/28/2019 Abdominal pain, unspecified site 01/28/2019 Diarrhea 01/28/2019 Unspecified constipation 07/2019 documented as of this encounter (statuses as of 06/23/2023) [facility] Diagnosis Gross hematuria- Primary [facility] Diagnosis Malaise and fatigue- Primary Other malaise and fatigue Irregular menstrual cycle Encounter for screening mammogram for malignant neoplasm of breast Other screening mammogram [facility] Diagnosis Irregular menstrual cycle- Primary Encounter for gynecological examination (general) (routine) without abnormal findings Encounter for screening for human papillomavirus (HPV) Special screening examination for human papillomavirus (HPV) Pap smear for cervical cancer screening Screening for malignant neoplasm of the cervix Encounter for screening mammogram for breast cancer [facility] Diagnosis Malaise and fatigue Other malaise and fatigue Irregular menstrual cycle [facility] Diagnosis Encounter for screening mammogram for malignant neoplasm of breast Other screening mammogram [facility] Diagnostic Procedure Only (Routine) - Authorized Specialty Diagnoses / Procedures Referred By Malachi talavera Referred To Contact [facility] Diagnoses Encounter for screening mammogram for malignant neoplasm of breast Procedures MELVIN SCREENING W JODIE SCREENING DIGITAL BREAST TOMOSYNTHESIS BI SCREENING MAMMOGRAPHY BI 2-VIEW BREAST INC CAD Joseph Jaeger MD [address] [place] [address] [facility] [address] [place] [address] Referral ID Status Reason Start Date Expiration Date Visits Requested Visits Authorized [id number] Authorized Auto-Generat ed Referral 01/08/2023 02/07/2024 1 1 * Outpatient Procedure (Routine) - Authorized Specialty Diagnoses / Procedures Referred By Malachi talavera Referred To Contact [facility] Diagnoses Irregular menstrual cycle Procedures ENDOMETRIAL BIOPSY ENDOMETRIAL BX W/WO ENDOCERVIX BX W/O DILAT SPX Joseph Jaeger MD [address] [place] [address] [facility] [address] [place] [address] Referral ID Status Reason Start Date Expiration Date Visits Requested Visits Authorized [id number] Authorized Auto-Generat ed Referral 01/08/2023 01/08/2024 1 1 * Diagnostic Procedure Only (Routine) - Pending Review Specialty Diagnoses / Procedures Referred By Malachi talavera Referred To Contact [facility] Diagnoses Malaise and fatigue Irregular menstrual cycle Procedures US FEMALE PELVIS TRANSABD LTD US PELVIC NONOBSTETRIC IMAGE DCMTN LIMITED/F/U Joseph Jaeger MD [address] [place] [address] [facility] Referral ID Status Reason Start Date Expiration Date Visits Requested Visits Authorized [id number] Pending Review Auto-Generat ed Referral 01/08/2023 02/07/2024 1 1 * Diagnostic Procedure Only (Routine) - Authorized Specialty Diagnoses / Procedures Referred By Contac t Referred To Contact [facility] Diagnoses Malaise and fatigue Irregular menstrual cycle Procedures US FEMALE PELVIS TRANSVAG US TRANSVAGINAL Joseph Jaeger MD [address] [place] [address] [facility] Referral ID Status Reason Start Date Expiration Date Visits Requested Visits Authorized [id number] Authorized Auto-Generat ed Referral 01/08/2023 02/07/2024 1 1 [facility] for referral (narrative)* Diagnostic Procedure Only (Routine) - Pending Review Specialty Diagnoses / Procedures Referred By Malachi talavera Referred To Contact [facility] Diagnoses Encounter for gynecological examination (general) (routine) without abnormal findings Encounter for screening mammogram for breast cancer Procedures MELVIN SCREENING W JODIE SCREENING DIGITAL BREAST TOMOSYNTHESIS BI SCREENING MAMMOGRAPHY BI 2-VIEW BREAST INC CAD Joseph Jaeger MD [address] [place] [address] [facility] [address] [place] [address] Referral ID Status Reason Start Date Expiration Date Visits Requested Visits Authorized [id number] Pending Review Auto-Generat ed Referral 02/18/2023 03/19/2024 1 1 [facility] for referral (narrative)* Diagnostic Procedure Only (Routine) - Closed Specialty Diagnoses / Procedures Referred By Malachi talavera Referred To Contact [facility] Diagnoses Malaise and fatigue Irregular menstrual cycle Procedures US FEMALE PELVIS TRANSABD LTD US PELVIC NONOBSTETRIC IMAGE DCMTN LIMITED/F/U Joseph Jaeger MD [address] [place] [address] [place] [address] Referral ID Status Reason Start Date Expiration Date V isits Requested Visits Authorized [id number] Closed Auto-Generate d Referral 01/18/2023 08/18/2023 1 1 * Diagnostic Procedure Only (Routine) - Closed Specialty Diagnoses / Procedures Referred By Malachi talavera Referred To Contact [facility] Diagnoses Malaise and fatigue Irregular menstrual cycle Procedures US FEMALE PELVIS TRANSVAG US TRANSVAGINAL Joseph Jaeger MD [address] [place] [address] [place] [address] Referral ID Status Reason Start Date Expiration Date V isits Requested Visits Authorized [id number] Closed Auto-Generate d Referral 01/08/2023 02/07/2024 1 1 [facility] for referral (narrative)* Diagnostic Procedure Only (Routine) - Closed Specialty Diagnoses / Procedures Referred By Malachi talavera Referred To Contact [facility] Diagnoses Encounter for screening mammogram for malignant neoplasm of breast Procedures MELVIN SCREENING W JODIE SCREENING DIGITAL BREAST TOMOSYNTHESIS BI SCREENING MAMMOGRAPHY BI 2-VIEW BREAST INC Joseph Tsai MD [address] [place] [address] [facility] [address] [place] [address] Referral ID Status Reason Start Date Expiration Date V isits Requested Visits Authorized [id number] Closed Auto-Generate d Referral 01/08/2023 02/07/2024 1 1 [facility] for visit Narrative* Diagnostic Procedure Only (Routine) - Closed Specialty Diagnoses / Procedures Referred By Malachi talavera Referred To Contact [facility] Diagnoses Encounter for screening mammogram for malignant neoplasm of breast Procedures MELVIN SCREENING W JODIE SCREENING DIGITAL BREAST TOMOSYNTHESIS BI SCREENING MAMMOGRAPHY BI 2-VIEW BREAST INC Joseph Tsai MD [address] [place] [address] [facility] [address] [place] [address] Referral ID Status Reason Start Date Expiration Date V isits Requested Visits Authorized [id number] Closed Auto-Generate d Referral 01/08/2023 02/07/2024 1 1 [facility] Summary Purpose Family History No Family History Records FoundNo Family History Records Found Advance Directives No Advanced Directives Records FoundNo Advanced Directives Records Found Additional Source Comments INFORMATION SOURCE (unrecogn ized section and content) DATE CREATED AUTHOR AUTHOR'S HIMANSHU FRENCH 09/07/2023 [facility] Source Comments (unrecognize d section and content) In the event this informatio n is protected by the Federal Confidentiality of Alcohol and Drug Abuse Patient Records regulations: The Federal rules restrict any use of the information to criminally investigate or prosecute any alcohol or drug abuse patient.[facility] the event this information is protected by the Federal Confidentiality of Alcohol and Drug Abuse Patient Records regulations: The Federal rules restrict any use of the information to criminally investigate or prosecute any alcohol or drug abuse patient.[facility] the event this information is protected by the Federal Confidentiality of Alcohol and Drug Abuse Patient Records regulations: The Federal rules restrict any use of the information to criminally investigate or prosecute any alcohol or drug abuse patient.[facility] the event this information is protected by the Federal Confidentiality of Alcohol and Drug Abuse Patient Records regulations: The Federal rules restrict any use of the information to criminally investigate or prosecute any alcohol or drug abuse patient.[facility] the event this information is protected by the Federal Confidentiality of Alcohol and Drug Abuse Patient Records regulations: The Federal rules restrict any use of the information to criminally investigate or prosecute any alcohol or drug abuse patient.[facility] the event this information is protected by the Federal Confidentiality of Alcohol and Drug Abuse Patient Records regulations: The Federal rules restrict any use of the information to criminally investigate or prosecute any alcohol or drug abuse patient.[facility] the event this information is protected by the Federal Confidentiality of Alcohol and Drug Abuse Patient Records regulations: The Federal rules restrict any use of the information to criminally investigate or prosecute any alcohol or drug abuse patient.[facility] Reason for Visit (unrecogniz ed section and content) Reason Comments Follow Up Discuss menopause Reason Comments Yearly Exam Endometrial Biopsy Reason Comments Radiology US Specialty Diagnoses / Procedures Referred By Contac t Referred To Contact US IMAGING Diagnoses Malaise and fatigue Irregular menstrual cycle Procedures US FEMALE PELVIS TRANSVAG US TRANSVAGINAL Joseph Jaeger MD [address] [place] [address] [place] [address] Referral ID Status Reason Start Date Expiration Date V isits Requested Visits Authorized [id number] Closed Auto-Generate d Referral 01/08/2023 02/07/2024 1 1 Care Teams (unrecognized sec tion and content) Sales Associate Relationship Specialty Start Date End Date Zachery Bray III PCP General 04/25/07 Sales Associate Relationship Specialty Start Date End Date Zachery Bray III [facility] General 04/25/07 Sales Associate Relationship Specialty Start Date End Date Zachery Bray III [facility] General 04/25/07 Sales Associate Relationship Specialty Start Date End Date Zachery Bray III [facility] General 04/25/07 Sales Associate Relationship Specialty Start Date End Date Zachery Bray III [facility] General 04/25/07 Sales Associate Relationship Specialty Start Date End Date Zachery Bray III PCP General 04/25/07 FOR RECORDS PERTAINING TO PATIENTS WHO ARE OR HAVE BEEN ENROLLED IN A CHEMICAL DEPENDENCY/SUBSTANCEABUSE PROGRAM, SOME INFORMATION MAY BE OMITTED. This clinical summary was aggregated from multiple sources. Caution should be exercised in using it in the provision of clinical care. This summary normalizes information from multiple sources, and as a consequence, information in this document may materially change the coding, format and clinical context of patient data. In addition, data may be omitted in some cases. CLINICAL DECISIONS SHOULD BE BASED ON THE PRIMARY CLINICAL RECORDS. [facility] [facility] provides no warranty or guarantee of the accuracy or completeness of information in this document.
[2023-10-08] MEDS: predniSONE 20 MG Tablet 40 MG PO (21:19)
[2023-10-08 21:22] VITALS: BP 138/82; PULSE 77; RESP 16; TEMP 36.3; O2SAT 98
== END 2023-10-08 21:23 | disposition home or self-care (01) ==
PROVIDERS: Emergency Provider Emergency Medicine; Visit Provider Emergency Medicine
DX: R60.0 Localized edema (principal); L30.9 Dermatitis, unspecified
CPT/HCPCS: 93970; 99282